=== PATIENT | male | born 1945 | race Caucasian/White ===

== ENCOUNTER → 2021-11-27 | Day surgery (SDC) | payer MEDICARE | END | disposition still patient (30) | LOC: MSO 07:41 | DX: E11.36 Type 2 diabetes mellitus with diabetic cataract (principal); H25.12 Age-related nuclear cataract, left eye; E66.9 Obesity, unspecified; Z79.4 Long term (current) use of insulin; Z79.84 Long term (current) use of oral hypoglycemic drugs; Z97.0 Presence of artificial eye; Z85.118 Personal history of other malignant neoplasm of bronchus and lung | CPT/HCPCS: 00142; J0171; J2250; J3010; V2632 ==